=== PATIENT | male | born 1975 | race Caucasian/White ===

== ENCOUNTER 2018-11-16 20:42 | Emergency (ER) | payer OTHER, SELFPAY ==
[2018-11-16 20:51] VITALS: BP 145/91; PULSE 87; RESP 15; TEMP 36.4; O2SAT 98; BMI 30.7
[2018-11-16 22:39] VITALS: PULSE 72
--- NOTE | 2018-11-16 22:39 | PC.NURSE ---
CMS fully intact. symptoms now resolved. No acute distress.
[2018-11-16 23:05] LABS: Hemoglobin 15.6 g/dL (13.5-17.5); Mean Corpuscular HGB Conc 34.7 % (30-36); Mean Corpuscular Hemoglobin 30.3 PG (26-34); Mean Corpuscular Volume 87.4 fL (80-100); Platelet Count 217 X10^3/uL (150-400); Red Blood Cell Count 5.14 X10^6/uL (4.5-5.9); Red Cell Distribution Width 13.3 % (11.6-14.8); White Blood Cell Count 7.3 X10^3/uL (4.5-11.0)
[2018-11-16 23:10] LABS: Add Manual Diff / Slide Review YES
[2018-11-16 23:11] LABS: BUN Creatinine Ratio 17.3 (6-22); Blood Urea Nitrogen 19 mg/dL (9-20); Calcium 9.2 mg/dL (8.4-10.2); Carbon Dioxide 27 mmol/L (22-32); Chloride 103 mmol/L (98-107); Creatine Kinase 89 U/L (55-170); Estimated Glomerular Filt Rate > 60.0 mL/min (>60); Glucose 119 mg/dL (70-100); HEMOLYSIS 25 (0-50); Potassium 3.9 mmol/L (3.4-5.1); Sodium 138 mmol/L (137-145)
[2018-11-16 23:21] LABS: Neutrophils Absolute Manual 4234 /uL (3000-5900); RBC Morphology Normal Morphology; Total Cells Counted 100
[2018-11-17 00:28] VITALS: BP 135/90; PULSE 76; O2SAT 98
--- NOTE | 2018-11-17 04:35 | ED_ITS ---
HPI - Extremity Problem General Chief complaint: Extremity Problem,Nontraumatic Stated complaint: on metforman muscles feel sore Time Seen by Provider: 11/16/18 20:49 Source: patient Mode of arrival: ambulatory Limitations: no limitations History of Present Illness HPI Narrative: 43-year-old male nonsmoker with history of diabetes on metformin presents with a chief complaint bilateral elbow and wrist pain for the past few days. He denies any significant working out or injury but states he has been using his computer more than normal. He denies any systemic findings such as dizziness, weakness or lightheadedness. He denies any chest pain or shortness of breath. He denies any fever or shaking chills. He denies any nausea, vomiting or diarrhea. He denies any muscle aches or significant fatigue. He denies any change in bowel or bladder control. He states that he contacted the nursing hotline whom sent him here for evaluation. He states that he stopped taking his metformin yesterday and his symptoms seemed to briefly improve MD Complaint: extremity pain Onset (ago): day(s) Location: left, right and upper extremity Quality: aching Radiation: none Relieving factors: rest Exacerbating factors: nothing Associated symptoms: denies other symptoms Related Data Allergies Allergy/AdvReac Type Severity Reaction Status Date / Time No Known Drug Allergies Allergy Verified 11/16/18 20:51 Review of Systems Constitutional Denies chills, Denies fever(s), Denies lethargy and Denies weakness Eyes Denies change in vision, Denies eye discharge, Denies irritation and Denies loss of vision ENT Ears, Nose, Mouth, and Throat: Denies change in voice, Denies neck pain and Denies sore throat Cardiovascular Denies chest pain, Denies irregular heart rhythm, Denies lightheadedness, Denies palpitations, Denies dyspnea, Denies dyspnea on exertion and Denies orthopnea Respiratory Denies cough, Denies dyspnea, Denies dyspnea on exertion and Denies wheezing Gastrointestinal Gastrointestinal: Denies abdominal pain, Denies change in bowel habits, Denies diarrhea, Denies nausea and Denies vomiting Genitourinary Denies hematuria, Denies flank pain, Denies urinary incontinence and Denies urinary urgency Musculoskeletal Reports arthralgias and Denies neck pain Integumentary/Breasts Denies pruritus, Denies erythema, Denies rash and Denies wounds Neurologic Denies confusion, Denies loss of vision and Denies weakness Psychiatric Denies anxiety, Denies confusion, Denies depression, Denies homicidal ideation and Denies suicidal ideation Endocrine Denies palpitations Hematologic/Lymphatic Denies easy bruising Allergic/Immunologic Denies wheezing [facility] Medical History (Updated 11/17/18 @ 04:36 by Aki Faye DO) Diabetes (Acute) Social History (Updated 11/17/18 @ 04:36 by Aki Faye DO) Smoking Status: Never smoker Social History (Updated 11/17/18 @ 04:36 by Aki Faye DO) Smoking Status: Never smoker Exam Narrative Exam Narrative: GENERAL: 43-year-old male appears stated age, no significant distress. HEAD: Atraumatic. Normocephalic. No temporal or scalp tenderness. EYES: Pupils equal round and reactive. Extraocular motions intact. No scleral icterus. No injection or drainage. ENT: Nose without bleeding, purulent drainage or septal hematoma. Throat without erythema, tonsillar hypertrophy or exudate. Uvula midline. Airway patent. NECK: Trachea midline. No JVD or lymphadenopathy. Supple, nontender, no meningeal signs. CARDIOVASCULAR: Regular rate and rhythm without murmurs, gallops, or rubs. RESPIRATORY: Clear to auscultation. Breath sounds equal bilaterally. No wheezes, rales, or rhonchi. GASTROINTESTINAL: Abdomen soft, non-tender, nondistended. No hepato- splenomegaly, or palpable masses. No guarding. EXTREMITIES: No clubbing, cyanosis, or edema. No joint tenderness, effusion, or edema noted. BACK: Nontender without deformity or crepitance. No flank tenderness. NEURO: AOx3. SKIN: No rash or erythema. Initial Vital Signs Initial Vital Signs: Vital Signs Temperature 97.5 F L 11/16/18 20:51 Pulse Rate 87 11/16/18 20:51 Respiratory Rate 15 11/16/18 20:51 Blood Pressure 145/91 H 11/16/18 20:51 Pulse Oximetry 98 11/16/18 20:51 Course Orders Ordered: ED Orders 11/16/18 22:55 Basic Metabolic Panel Stat Complete Blood Count AUTO DIFF Stat Creatine Kinase Stat Vital Signs - 8 hr 11/16/18 20:51 11/16/18 22:39 11/17/18 00:28 Temperature 97.5 F L Pulse Rate 87 76 Pulse Rate [Bilateral Dorsalis Pedis] 72 Pulse Rate [Bilateral Radial] 72 Respiratory Rate 15 Blood Pressure 145/91 H 135/90 Pulse Oximetry 98 98 MDM - Extremity (Nontraumatic) Lab Data Result diagrams: 11/16/18 22:55 11/16/18 22:55 Lab Results 11/16/18 11/16/18 Range/Units 22:55 22:55 WBC 7.3 (4.5-11.0) X10^3/uL RBC 5.14 (4.5-5.9) X10^6/uL Hgb 15.6 (13.5-17.5) g/dL Hct 45.0 (41-53) % MCV 87.4 (80-100) fL MCH 30.3 (26-34) PG MCHC 34.7 (30-36) % RDW 13.3 (11.6-14.8) % Plt Count 217 (150-400) X10^3/uL Neut % (Auto) Not Reportable Lymph % (Auto) Not Reportable [place] % (Auto) Not Reportable Eos % (Auto) Not Reportable Baso % (Auto) Not Reportable Lymph # (Auto) Not Reportable [place] # (Auto) Not Reportable Baso # (Auto) Not Reportable Total Counted 100 Seg Neutrophils % 57.0 (38-70) % Band Neutrophils % 1.0 L (3-7) % Lymphocytes % (Manual) 35.0 (25-45) % Monocytes % (Manual) 4.0 (2-11) % Eosinophils % (Manual) 3.0 (2-4) % Neutrophils # (Manual) 4234 (7696-3632) /uL RBC Morphology Normal morphology Sodium 138 (137-145) mmol/L Potassium 3.9 (3.4-5.1) mmol/L Chloride 103 (98-107) mmol/L Carbon Dioxide 27 (22-32) mmol/L BUN 19 (9-20) mg/dL Creatinine 1.10 (0.66-1.25) mg/dL Estimated GFR > 60.0 (>60) mL/min BUN/Creatinine Ratio 17.3 (6-22) Glucose 119 H (70-100) mg/dL Calcium 9.2 (8.4-10.2) mg/dL Total Creatine Kinase 89 (55-170) U/L MDM Narrative Medical decision making narrative: Multiple etiologies for patient's symptoms considered including: [Lactic acidosis versus septic arthritis versus myositis vs. rhabdo vs. other] Findings and discharge diagnosis discussed with patient/family followed by verbalization of understanding Return precautions discussed with patient/family whom verbalize understanding. Discharge Plan Departure Patient Disposition: Home Clinical Impression: Joint pain Qualifiers: Joint pain location: unspecified Qualified Code(s): M25.50 - Pain in unspecified joint Discharge Date/Time: 11/17/18 00:28 Interventions: ED Discharge Assessment Last Done: 11/17/18 00:28 Instructions: DI for Arthralgia
== END 2018-11-17 00:28 | disposition home or self-care (01) ==
PROVIDERS: Emergency Provider Emergency Medicine
DX: M25.50 Pain in unspecified joint (principal)
CPT/HCPCS: 36415; 80048; 82550; 85025; 99282; 99283

== ENCOUNTER 2019-03-17 10:16 | Emergency (ER) | payer OTHER, SELFPAY ==
[2019-03-17 10:23] VITALS: BP 144/80; PULSE 96; RESP 18; TEMP 36.6; O2SAT 99; BMI 30.8
--- NOTE | 2019-03-17 11:06 | DI.RAD.S_ITS ---
PROCEDURE: XR CHEST 2V INDICATIONS: sob TECHNIQUE: 2 views of the chest were acquired. COMPARISON: None. FINDINGS: Surgical changes and devices: None. Lungs and pleura: Lungs are clear. No pleural effusions or pneumothorax. Mediastinum: Mediastinal contours are normal. Heart size is normal. Bones and chest wall: No suspicious bony abnormalities. Soft tissues appear unremarkable. IMPRESSION: No acute pulmonary process. Dictated by: Cyndy Bagley M.D. on 03/17/2019 at 11:37 Approved by: Cyndy Bagley M.D. on 03/17/2019 at 11:37
--- NOTE | 2019-03-17 11:44 | ED_ITS ---
HPI - URI/Sore Throat <HAL Ferguson - Last Filed: 03/17/19 13:43> General Chief Complaint: Upper Respiratory Symptoms Stated Complaint: poss pneumonia/ coughing/ phlegm/ trouble sleeping Time Seen by Provider: 03/17/19 10:56 Source: patient Mode of arrival: Ambulatory Limitations: no limitations History of Present Illness HPI Narrative: The patient is a 44-year-old male of pneumonia who presents with a chief complaint of productive cough since . He denies any fevers, does complain of cough and wheezing. States he is coughing up green and yellow sputum. Denies any sore throat or ear pain. Denies any nausea vomiting or diarrhea. He is concerned as he has a history of pneumonia and states that this feels similar. Denies any chest pain, but complains of muscle aches related to cough. Has taken [id number] medications such as Mucinex in order to feel better. Related Data Allergies Allergy/AdvReac Type Severity Reaction Status Date / Time No Known Drug Allergies Allergy Verified 03/17/19 10:23 Review of Systems <HAL Ferguson - Last Filed: 03/17/19 13:43> Review of Systems Narrative: GENERAL: Denies chills, fatigue, malaise, fever, sweats. HEENT: Denies sinus pain, ear pain, sore throat, difficulty swallowing, dizziness. RESPIRATORY: See HPI CARDIOVASCULAR: Denies chest pain, palpitations, orthopnea, edema, GASTROINTESTINAL: Denies nausea, vomiting, abdominal pain, diarrhea, constipation, melena. : Denies dysuria, frequency, incontinence, hematuria, urinary retention. MUSCULOSKELETAL: denies weakness, joint pain, or bony pain SKIN: Denies rash, skin lesions, or other NEUROLOGIC: Denies weakness, headache, numbness, change in speech, confusion, seizures, incoordination. PSYCHIATRIC: No concerning psychosocial issues. 12 point review of systems is negative except for those stated above Patient History <HAL Ferguson - Last Filed: 03/17/19 13:43> Medical History Diabetes (Acute) Social History Smoking Status: Never smoker alcohol intake frequency: a few times a month Substance Use Type: does not use Exam <HAL Ferguson - Last Filed: 03/17/19 13:43> Narrative Exam Narrative: GENERAL: This is a well-nourished, well-developed patient, in no acute distress HEAD: Atraumatic. Normocephalic. No temporal or scalp tenderness. EYES: Pupils equal round and reactive. Extraocular motions intact. No scleral icterus. No injection or drainage. ENT: Nose without bleeding, purulent drainage or septal hematoma. Throat without erythema, tonsillar hypertrophy or exudate. Uvula midline. Airway patent. NECK: Trachea midline. No JVD or lymphadenopathy. Supple, nontender, no meningeal signs. CARDIOVASCULAR: Regular rate and rhythm without murmurs, gallops, or rubs. RESPIRATORY: Clear to auscultation. Breath sounds equal bilaterally. No wheezes, rales, or rhonchi. No cough. No increased respiratory effort. No accessory muscle use. GASTROINTESTINAL: Abdomen soft, non-tender, nondistended. No hepato- splenomegaly, or palpable masses. No guarding. EXTREMITIES: No clubbing, cyanosis, or edema. No joint tenderness, effusion, or edema noted. BACK: Nontender without deformity or crepitance. No flank tenderness. NEURO: AOx3. SKIN: No rash or erythema on visible skin Initial Vital Signs Initial Vital Signs: Vital Signs Temperature 97.8 F 03/17/19 10:23 Pulse Rate 96 H 03/17/19 10:23 Respiratory Rate 18 03/17/19 10:23 Blood Pressure 144/80 H 03/17/19 10:23 Pulse Oximetry 99 03/17/19 10:23 <Emmy Pacheco MD - Last Filed: 03/18/19 06:59> Initial Vital Signs Initial Vital Signs: Vital Signs Temperature 97.8 F 03/17/19 10:23 Pulse Rate 96 H 03/17/19 10:23 Respiratory Rate 18 03/17/19 10:23 Blood Pressure 144/80 H 03/17/19 10:23 Pulse Oximetry 99 03/17/19 10:23 Course <HAL Ferguson - Last Filed: 03/17/19 13:43> Orders Ordered: ED Orders 03/17/19 11:06 XR chest 2V Stat RT Consult Eval and Treat NOW 03/17/19 12:09 Influenza A and B by PCR Rapid Stat Vital Signs Vital signs: Vital Signs - 8 hr 03/17/19 10:23 03/17/19 12:55 Temperature 97.8 F Pulse Rate 96 H 87 Respiratory Rate 18 18 Blood Pressure 144/80 H Pulse Oximetry 99 96 <Emmy Pacheco MD - Last Filed: 03/18/19 06:59> Orders Ordered: ED Orders 03/17/19 11:06 XR chest 2V Stat RT Consult Eval and Treat NOW 03/17/19 12:09 Influenza A and B by PCR Rapid Stat Vital Signs Vital signs: Vital Signs - 8 hr 03/17/19 10:23 03/17/19 12:55 Temperature 97.8 F Pulse Rate 96 H 87 Respiratory Rate 18 18 Blood Pressure 144/80 H Pulse Oximetry 99 96 MDM - URI/Sore Throat <HAL Ferguson - Last Filed: 03/17/19 13:43> Lab Data Labs: Lab Results 03/17/19 Range/Units 12:09 Influenza A & B (PCR) Negative (Negative) Imaging Data Chest x-ray: Radiologist's impression: [place] [address] XRay Report Signed Patient: Guille Maddox JR [facility]#: [id number] : 1975Acct:[id number] Age/Sex: 44 / MDate of Service: 03/17/19 Loc: ED Accession Number: [id number] Procedure: XR chest 2V Ordering Provider: Silvia Manning PROCEDURE: XR CHEST 2V INDICATIONS: sob TECHNIQUE: 2 views of the chest were acquired. COMPARISON: None. FINDINGS: Surgical changes and devices: None. Lungs and pleura: Lungs are clear. No pleural effusions or pneumothorax. Mediastinum: Mediastinal contours are normal. Heart size is normal. Bones and chest wall: No suspicious bony abnormalities. Soft tissues appear unremarkable. IMPRESSION: No acute pulmonary process. Dictated by: Cyndy Bagley M.D. on 03/17/2019 at 11:37 Approved by: Cyndy Bagley M.D. on 03/17/2019 at 11:37 [facility] Narrative Medical decision making narrative: The patient is a 44-year-old male with history of pneumonia presents with a chief complaint of a cough ongoing for the past 4 days. He is concerned he has pneumonia again. His flu test is negative, his chest x-ray is clear. He is not systemically ill, is afebrile and hemodynamically stable in the emergency department. His exam is overall benign and he was evaluated by respiratory therapist well in the emergency department. I encouraged [id number] medications as needed and able, rest and pushing fluids. Encourage PCP follow-up in the next few days of worsening or no improvement. Discussed at length return precautions the emergency department for any acute concerns such as chest pain, shortness of breath, concern of heart attack or stroke. Patient has no questions or concerns upon discharge and states understanding of return precautions and follow-up care. <Emmy Pacheco MD - Last Filed: 03/18/19 06:59> Lab Data Labs: Lab Results 03/17/19 Range/Units 12:09 Influenza A & B (PCR) Negative (Negative) Discharge Plan Departure Patient Disposition: Home Clinical Impression: Cough Upper respiratory infection Qualifiers: URI type: unspecified viral URI Qualified Code(s): J06.9 - Acute upper respiratory infection, unspecified Discharge Date/Time: 03/17/19 12:55 Instructions: Cough (Alternative Therapy), DI for Cough -- Adult, DI for Viral Upper Respiratory Infection -- Adult Activity Restrictions/Additional Instructions: Your chest x-ray came back with no pneumonia. Your flu test came back negative. Please follow up with primary care provider in the next few days, especially if worsening or no improvement. Please use [id number] medications as needed and able such as DayQuil, NyQuil etc I suggest lemon and honey for the cough in addition [id number] medication Please come back to emergency department for any acute concerns such as chest pain, shortness of breath, concern of heart attack or stroke Referrals: [employer] [facility] [Provider Group]
[2019-03-17 12:35] LABS: Influenza A and B by PCR Rapid Negative (Negative)
[2019-03-17 12:55] VITALS: PULSE 87; RESP 18; O2SAT 96
== END 2019-03-17 12:55 | disposition home or self-care (01) ==
PROVIDERS: Emergency Provider Nurse Practitioner Family
DX: R05 Cough (principal); J06.9 Acute upper respiratory infection, unspecified; R06.02 Shortness of breath
CPT/HCPCS: 71046; 87502; 99282; 99283